=== PATIENT | female | born 1965 | race Two or more races ===

== ENCOUNTER → 2017-10-25 | Outpatient (CLI) | payer OTHER ==
--- NOTE | 2017-10-26 09:12 | RADIOLOGY REPORT (SQ) ---
EXAM DESCRIPTION: U/S THYROID/SFT TISS HD NECK COMPLETED DATE/TIME: 10/25/2017 5:49 pm REASON FOR STUDY: ABNORMAL RESULTS OF THYROID FUNCTION STUDIES R94.6 ABNORMAL RESULTS OF THYROID FU NCTION STUDIES E07.89 OTHER SPECIFIED DISORDERS OF THYROID G44.221 CHRONIC TENSION-TYPE HEADACHE, I NTRACTABLE COMPARISON: None. TECHNIQUE: Dynamic and static negron-scale images acquired of the thyroid gland. Selected additional c olor/power Doppler images recorded. All images stored to PACS. LIMITATIONS: None. FINDINGS: Right lobe thyroid is 4.3 x 1.9 x 0.7 cm in size. There are multiple hypoechoic less than 5 mm nodules in the right lobe thyroid likely small colloid cysts. Left lobe thyroid is 4.1 x 1.8 x 1.0 cm in size. Multiple small less than 5 mm hypoechoic probable c olloid cysts are present. Thyroid isthmus 2 mm in thickness. IMPRESSION: Normal size thyroid gland with multiple small colloid cysts. 1 year follow-up recommend ed. TECHNICAL DOCUMENTATION: JOB ID: [id number] [employer]- All Rights Reserved
--- NOTE | 2017-10-26 09:17 | RADIOLOGY REPORT (SQ) ---
EXAM DESCRIPTION: MRI HEAD WITHOUT; MRA HEAD WITHOUT COMPLETED DATE/TIME: 10/25/2017 6:54 pm REASON FOR STUDY: CHRONIC TENSION-TYPE HEADACHE, INTRACTABLE R94.6 ABNORMAL RESULTS OF THYROID FUNC TION STUDIES E07.89 OTHER SPECIFIED DISORDERS OF THYROID G44.221 CHRONIC TENSION-TYPE HEADACHE, INT RACTABLE COMPARISON: CT brain 07/08/2015 MRI brain 07/21/2015 TECHNIQUE: Multiplanar imaging includes non-contrasted T1, T2, FLAIR, and diffusion with ADC map seq uences. Images stored on PACS. [place] non contrasted MRA was performed with 3D qgkq-tj-vlqhgs acquisition imaging. Data w as reviewed with maximum intensity projected images of the [place] LIMITATIONS: None. FINDINGS: ANATOMY: No developmental anomalies. Normal vascular flow voids. Pituitary fossa normal. CSF SPACES: Normal in size and contour. No hemorrhage. CEREBRUM: Sulci and gyri normal in size and contour. Normal white matter signal on FLAIR imaging. No evidence of hemorrhage, mass, or extraaxial fluid collection. POSTERIOR FOSSA: No signal alteration. No hemorrhage. No edema, masses or mass effect. Internal aury tory canals, cerebello-pontine angles, mastoids normal. DIFFUSION IMAGING: Negative for acute or sub-acute infarction. ORBITS: No masses. Globes normal. PARANASAL SINUSES: No fluid levels. Mucosa normal. [place] MRA: No other significant finding. No [place] stenosis, vascular malformat ion, or aneurysm. IMPRESSION: NORMAL MRI OF THE BRAIN WITHOUT INTRAVENOUS GADOLINIUM CONTRAST. NORMAL [place] MRA EXAM EVIDENCE OF ACUTE STROKE: NO. TECHNICAL DOCUMENTATION: JOB ID: [id number] [employer]- All Rights Reserved
--- NOTE | 2017-10-26 09:17 | RADIOLOGY REPORT (SQ) ---
EXAM DESCRIPTION: MRI HEAD WITHOUT; MRA HEAD WITHOUT COMPLETED DATE/TIME: 10/25/2017 6:54 pm REASON FOR STUDY: CHRONIC TENSION-TYPE HEADACHE, INTRACTABLE R94.6 ABNORMAL RESULTS OF THYROID FUNC TION STUDIES E07.89 OTHER SPECIFIED DISORDERS OF THYROID G44.221 CHRONIC TENSION-TYPE HEADACHE, INT RACTABLE COMPARISON: CT brain 07/08/2015 MRI brain 07/21/2015 TECHNIQUE: Multiplanar imaging includes non-contrasted T1, T2, FLAIR, and diffusion with ADC map seq uences. Images stored on PACS. [place] non contrasted MRA was performed with 3D soxa-yz-emcraw acquisition imaging. Data w as reviewed with maximum intensity projected images of the [place] LIMITATIONS: None. FINDINGS: ANATOMY: No developmental anomalies. Normal vascular flow voids. Pituitary fossa normal. CSF SPACES: Normal in size and contour. No hemorrhage. CEREBRUM: Sulci and gyri normal in size and contour. Normal white matter signal on FLAIR imaging. No evidence of hemorrhage, mass, or extraaxial fluid collection. POSTERIOR FOSSA: No signal alteration. No hemorrhage. No edema, masses or mass effect. Internal aury tory canals, cerebello-pontine angles, mastoids normal. DIFFUSION IMAGING: Negative for acute or sub-acute infarction. ORBITS: No masses. Globes normal. PARANASAL SINUSES: No fluid levels. Mucosa normal. [place] MRA: No other significant finding. No [place] stenosis, vascular malformat ion, or aneurysm. IMPRESSION: NORMAL MRI OF THE BRAIN WITHOUT INTRAVENOUS GADOLINIUM CONTRAST. NORMAL [place] MRA EXAM EVIDENCE OF ACUTE STROKE: NO. TECHNICAL DOCUMENTATION: JOB ID: [id number] [employer]- All Rights Reserved
== END ==
LOC: RAD 16:59
PROVIDERS: ATTEND Physician Assistant
DX: R94.6 Abnormal results of thyroid function studies (principal); E07.89 Other specified disorders of thyroid; G44.221 Chronic tension-type headache, intractable; G52.1 Disorders of glossopharyngeal nerve; E04.1 Nontoxic single thyroid nodule
CPT/HCPCS: 70544; 70551; 76536

== ENCOUNTER → 2018-12-20 | Outpatient (CLI) | payer OTHER ==
--- NOTE | 2018-12-20 09:18 | RADIOLOGY REPORT (SQ) ---
EXAM DESCRIPTION: U/S THYROID/SFT TISS HD NECK COMPLETED DATE/TIME: 12/20/2018 9:08 am REASON FOR STUDY: NONTOXIC SINGLE THYROID NODULE (E04.1), ABN THYROID FUNCTION TEST (R94.6) E04.1 N ONTOXIC SINGLE THYROID NODULE R94.6 ABNORMAL RESULTS OF THYROID FUNCTION STUDIES R13.10 DYSPHAGIA, UNSPECIFIED COMPARISON: Thyroid ultrasound 10/25/2017 TECHNIQUE: Dynamic and static negron-scale images acquired of the thyroid gland. Selected additional c olor/power Doppler images recorded. All images stored to PACS. LIMITATIONS: None. FINDINGS: RIGHT LOBE: Normal size, 4.3 x 1.8 x 1.3 cm Homogeneous echotexture. 4 mm and 2 mm collo id cysts are present, stable. LEFT LOBE: Normal size, 4.2 x 1.6 x 1.4 cm. Homogeneous echotexture. Benign stable 4 mm colloid cys t left lower pole thyroid. ISTHMUS: Normal size. Homogeneous echotexture. No cystic or solid masses. OTHER: No other significant finding. IMPRESSION: Tiny bilateral stable colloid cysts. Otherwise unremarkable study. 1 year follow-up [facility] ultrasound recommended TECHNICAL DOCUMENTATION: JOB ID: [id number] [employer]- All Rights Reserved Reading location - IP/workstation name: [email or web address]
--- NOTE | 2018-12-20 10:03 | RADIOLOGY REPORT (SQ) ---
EXAM DESCRIPTION: BARIUM SWALLOW ESOPHAGUS COMPLETED DATE/TIME: 12/20/2018 9:34 am REASON FOR STUDY: DYSPHAGIA (R13.10) E04.1 NONTOXIC SINGLE THYROID NODULE R94.6 ABNORMAL RESULTS O F THYROID FUNCTION STUDIES R13.10 DYSPHAGIA, UNSPECIFIED FLUOROSCOPY TIME: FLUORO TIME: 1 minutes 55 seconds 16 series of digital fluoroscopic images saved to PACS. FINDINGS: NEUROMUSCULAR COORDINATION OF SWALLOW: Normal. No aspiration. ESOPHAGEAL MOTILITY: Normal peristalsis. No esophageal spasm. ESOPHAGEAL MUCOSA: Normal mucosa without masses or ulceration. GASTRO-ESOPHAGEAL JUNCTION: No hiatal hernia. Unprovoked mild gastroesophageal reflux. NON-GI TRACT STRUCTURES: No significant finding. OTHER: Normal gastric emptying IMPRESSION: Unprovoked mild gastroesophageal reflux. No distal esophageal stricture or hiatal hernia COMMENT: Quality ID 145: Final reports for procedures using fluoroscopy that document radiation exp osure indices, or exposure time and number of fluorographic images (if radiation exposure indices are not available) TECHNICAL DOCUMENTATION: JOB ID: [id number] [employer]- All Rights Reserved COMPARISON: None. Thyroid ultrasound 12/20/2018 Two view chest films 10/03/2016 TECHNIQUE: Under fluoroscopic guidance, patient ingested effervescent granules followed by thick and thin barium. Fluoroscopic spot images and routine radiographic images acquired and stored on PACS. 12 MM BARIUM TABLET GIVEN: Yes No significant delay in passage. LIMITATIONS: None. Reading location - IP/workstation name: [email or web address]
== END ==
LOC: RAD 08:28
PROVIDERS: ATTEND Physician Assistant
DX: E04.1 Nontoxic single thyroid nodule (principal); R94.6 Abnormal results of thyroid function studies; K21.9 Gastro-esophageal reflux disease without esophagitis; R13.10 Dysphagia, unspecified
CPT/HCPCS: 74220; 76536

== ENCOUNTER 2019-03-19 12:43 | Emergency (ER) | payer OTHER ==
[2019-03-19] MEDS ORDERED: KETOROLAC TROMETHAMINE INJ/PF 30 MG/1 ML SDV IV ONE (13:47)
[2019-03-19] MEDS ORDERED: NORMAL SALINE 1000 ML 1,000 ML IV ONE (13:47)
[2019-03-19] MEDS ORDERED: ONDANSETRON HCL INJ/PF 4 MG/2 ML SDV IV ONE (13:47)
--- NOTE | 2019-03-19 13:49 | ER Document Report ---
ED Medical Screen (RME) - General Chief Complaint: Chest Pain Stated Complaint: STOMACHE PAIN Time Seen by Provider: 03/19/19 13:46 Primary Care Provider: LYNNE DIAZ PA [Primary Care Provider] - Follow up as needed Mode of Arrival: Ambulatory Information source: Patient Notes: 53-year-old female presented to ED for left flank pain radiating to the chest and back. She states is been going on for 2 days. States she went to the doctor they suggested in the emergency room for CAT scan and evaluation to see if she had a kidney stone. Patient is alert oriented respirations regular and unlabored speaking in full sentences walks with even steady gait. She has a history of diabetes TIA high cholesterol reflux disease and bilateral tubal ligation. She is present with her at this time. I have ordered CBC chemistry urine and CT abdomen pelvis with no IV or oral contrast to rule out kidney stones. Will treat with Toradol and Zofran. I have greeted and performed a rapid initial assessment of this patient. A comprehensive ED assessment and evaluation of the patient, analysis of test results and completion of medical decision making process will be conducted by an additional ED providers. Dictation of this chart was performed using voice recognition software; therefore, there may be some unintended grammatical errors. TRAVEL OUTSIDE OF THE [place] IN LAST 30 DAYS: No - Related Data Allergies/Adverse Reactions: codeine [Codeine] Allergy (Verified 03/19/19 12:46) Iodinated Contrast- Oral and IV Dye [IV Dye, Iodine Containing] Allergy (Verified 03/19/19 12:46) Past Medical History Pulmonary Medical History: Reports: Hx Asthma - Immunizations Hx Diphtheria, Pertussis, Tetanus Vaccination: No Physical Exam - Vital signs Vitals: Temp Pulse Resp BP Pulse Ox 98.1 F 111 H 18 129/83 H 96 03/19/19 13:18 03/19/19 13:18 03/19/19 13:18 03/19/19 13:18 03/19/19 13:18 Course - Vital Signs Vital signs: Temp Pulse Resp BP Pulse Ox 98.1 F 111 H 18 129/83 H 96 03/19/19 13:18 03/19/19 13:18 03/19/19 13:18 03/19/19 13:18 03/19/19 13:18 Doctor's Discharge - Discharge Referrals: LYNNE DIAZ PA [Primary Care Provider] - Follow up as needed
[2019-03-19 15:25] LABS: ABSOLUTE EOSINOPHILS # (AUTO) 0.1 10^3/uL (0.0-0.6); ABSOLUTE LYMPHOCYTES (AUTO) 1.2 10^3/uL (0.5-4.7); ABSOLUTE MONOCYTES (AUTO) 0.5 10^3/uL (0.1-1.4); ABSOLUTE NEUT (AUTO) 5.6 10^3/uL (1.7-8.2); BASOPHILS % (AUTO) 0.1 % (0-2); EOSINOPHILS % (AUTO) 1.2 % (0-6); HEMATOCRIT 42.8 % (36.0-47.0); HEMOGLOBIN 14.3 g/dL (12.0-15.5); LYMPHOCYTES % (AUTO) 16.7 % (13-45); MEAN CORPUSCULAR HEMOGLOBIN 27.2 pg (27.0-33.4); MEAN CORPUSCULAR HGB CONC 33.3 g/dL (32.0-36.0); MEAN CORPUSCULAR VOLUME 82 fl (80-97); MONOCYTES % (AUTO) 6.9 % (3-13); PLATELET COUNT 306 10^3/uL (150-450); RED BLOOD COUNT 5.24 10^6/uL (3.72-5.28); RED CELL DISTRIBUTION WIDTH 14.2 % (11.5-14.0); SEGMENTED NEUTROPHILS % (AUTO) 75.1 % (42-78); TOTAL CELLS COUNTED % (AUTO) 100 %; WHITE BLOOD COUNT 7.5 10^3/uL (4.0-10.5)
[2019-03-19 15:33] LABS: APPEARANCE,URINE SLIGHTLY-CLOUDY; BILIRUBIN,URINE NEGATIVE (NEGATIVE); COLOR,URINE YELLOW; GLUCOSE, URINE NEGATIVE (NEGATIVE); KETONES,URINE NEGATIVE (NEGATIVE); LEUKOCYTE ESTERASE,URINE NEGATIVE (NEGATIVE); NITRITE,URINE NEGATIVE (NEGATIVE); PROTEIN,URINE NEGATIVE (NEGATIVE); URINE SPECIFIC GRAVITY 1.012
[2019-03-19 15:50] LABS: ALANINE AMINOTRANSFERASE 318 U/L (9-52); ALBUMIN 4.5 g/dL (3.5-5.0); ALKALINE PHOSPHATASE 114 U/L (38-126); ANION GAP 10 (5-19); ASPARTATE AMINO TRANSFERASE 251 U/L (14-36); BILIRUBIN,DIRECT 0.4 mg/dL (0.0-0.4); BILIRUBIN,TOTAL 0.7 mg/dL (0.2-1.3); BLOOD UREA NITROGEN 12 mg/dL (7-20); CALCIUM 9.9 mg/dL (8.4-10.2); CARBON DIOXIDE 28 mmol/L (22-30); CHLORIDE 106 mmol/L (98-107); CREATINE KINASE 46 U/L (30-135); GLUCOSE 110 mg/dL (75-110); POTASSIUM 4.5 mmol/L (3.6-5.0); SODIUM 143.7 mmol/L (137-145); TOTAL PROTEIN 8.1 g/dL (6.3-8.2)
--- NOTE | 2019-03-19 15:56 | RADIOLOGY REPORT (SQ) ---
EXAM DESCRIPTION: CT ABD/PELVIS NO ORAL OR IV COMPLETED DATE/TIME: 03/19/2019 3:43 pm REASON FOR STUDY: left flank pain COMPARISON: None. TECHNIQUE: CT scan of the abdomen and pelvis performed without intravenous or oral contrast. Images reviewed with lung, soft tissue, and bone windows. Reconstructed coronal and sagittal MPR images revi ewed. All images stored on PACS. All CT scanners at this facility use dose modulation, iterative reconstruction, and/or weight based d osing when appropriate to reduce radiation dose to as low as reasonably achievable (ALARA). [facility]: Dose Right [facility]: CareDose [facility]: Dose Right [facility]: Teradose 4D [facility]: Smart Mete[employer] Protect RADIATION DOSE: CT Rad equipment meets quality standard of care and radiation dose reduction techniq ues were employed. CTDIvol: 9.8 mGy. DLP: 530 mGy-cm.mGy. LIMITATIONS: None. FINDINGS: LOWER CHEST: No significant findings. No nodules or infiltrates. NON-CONTRASTED LIVER, SPLEEN, ADRENALS: Evaluation limited by lack of IV contrast. No identified sign ificant masses. PANCREAS: No masses. No peripancreatic inflammatory changes. GALLBLADDER: No identified stones by CT criteria. No inflammatory changes to suggest cholecystitis. RIGHT KIDNEY AND URETER: No suspicious masses. Assessment limited by lack of IV contrast. No signif icant calcifications. No hydronephrosis or hydroureter. LEFT KIDNEY AND URETER: No suspicious masses. Assessment limited by lack of IV contrast. There is a punctuate calcification in the vicinity of the distal left ureter (series 3, image 77), which is not definitely a ureteral calculus or phlebolith. There are additional phleboliths in the low pelvis. No hydronephrosis or hydroureter. AORTA AND RETROPERITONEUM: No aneurysm. No retroperitoneal masses or adenopathy. BOWEL AND PERITONEAL CAVITY: No obvious masses or inflammatory changes. No free fluid. APPENDIX: Normal. PELVIS, BLADDER, AND ABDOMINAL WALL:No abnormal masses. No free fluid. Bladder normal. BONES: No significant findings. OTHER: No other significant finding. IMPRESSION: No definite noncontrast CT findings to explain left-sided flank pain. There is a punctua te calcification in the vicinity of the distal left ureter (series 3, image 77), which is not definit balbir a ureteral calculus or phlebolith. No hydronephrosis or hydroureter. No other evidence of urina ry tract calculus. There are additional phleboliths in the low pelvis. COMMENT: Quality ID # [id number]: Final reports with documentation of one or more dose reduction techniques (e.g., Automated exposure control, adjustment of the mA and/or kV according to patient size, use of iterative reconstruction technique) TECHNICAL DOCUMENTATION: JOB ID: [id number] [employer]- All Rights Reserved Reading location - IP/workstation name: [email or web address]
--- NOTE | 2019-03-19 16:15 | EKG REPORT ---
SEVERITY:- BORDERLINE ECG - SINUS TACHYCARDIA BORDERLINE T ABNORMALITIES, INFERIOR LEADS : Confirmed by: Mundo Dewitt MD 19-Mar-2019 16:14:31
[2019-03-19 16:19] LABS: CREATINE KINASE MB < 0.22 ng/mL (<4.55); TROPONIN I < 0.012 ng/mL
[2019-03-19] MEDS ORDERED: KETOROLAC TROMETHAMINE INJ/PF 30 MG/1 ML SDV ONE (17:05)
[2019-03-19] MEDS ORDERED: ONDANSETRON HCL INJ/PF 4 MG/2 ML SDV ONE (17:05)
--- NOTE | 2019-03-19 18:26 | ER Document Report ---
ED General - General Chief Complaint: Chest Pain Stated Complaint: STOMACHE PAIN Time Seen by Provider: 03/19/19 13:46 Primary Care Provider: LYNNE DIAZ PA [Primary Care Provider] - Follow up as needed Mode of Arrival: Ambulatory Information source: Patient Notes: 53-year-old female with diabetes, hyperlipidemia presents with nausea, vomiting, left upper quadrant abdominal pain that started 2 days prior to arrival. Patient describes the pain as stabbing, intermittent with radiation to her right upper quadrant and epigastric area. Patient states that she has been unable to tolerate food or fluids. She has had associated diarrhea. She denies fever, chills, dysuria, hematuria. Patient was recently started on a new medication for diabetes called Trulicity. After reviewing literature for this medication, reactions are nausea, vomiting, diarrhea and abdominal pain. TRAVEL OUTSIDE OF THE [place] IN LAST 30 DAYS: No - HPI Onset: Other Onset/Duration: Gradual, Intermittent Quality of pain: Sharp, Stabbing Severity: Moderate Pain Level: 2 Associated symptoms: Diarrhea, Nausea, Vomiting, Other Exacerbated by: Food Relieved by: Denies Similar symptoms previously: No Recently seen / treated by doctor: No - Related Data Allergies/Adverse Reactions: codeine [Codeine] Allergy (Verified 03/19/19 12:46) Iodinated Contrast- Oral and IV Dye [IV Dye, Iodine Containing] Allergy (Verified 03/19/19 12:46) Past Medical History - General Information source: Patient - Social History Smoking Status: Never Smoker Frequency of alcohol use: Occasional Drug Abuse: None Lives with: Family Family History: Reviewed & Not Pertinent Patient has suicidal ideation: No Patient has homicidal ideation: No Pulmonary Medical History: Reports: Hx Asthma Endocrine Medical History: Reports: Hx Diabetes Mellitus Type 2 - Immunizations Hx Diphtheria, Pertussis, Tetanus Vaccination: No Review of Systems - Review of Systems Notes: REVIEW OF SYSTEMS: CONSTITUTIONAL : Denies fever, chills, or sweats. Denies recent illness. D enies weight loss, recent hospitalizations. EENT: Denies visual changes, eye pain. Denies sore throat, oral lesions, difficulty swallowing. CARDIOVASCULAR: Denies chest pain. Denies palpitations. Denies lower extremity edema. RESPIRATORY: Denies cough. Denies shortness of breath, wheezing. GASTROINTESTINAL: + abdominal pain or distention. + nausea, vomiting, or diarrhea. Denies blood in vomitus, stools, or per rectum. Denies black, tarry stools. Denies constipation. GENITOURINARY: Denies difficulty urinating, painful urination, frequency, blood in urine, or vaginal discharge. MUSCULOSKELETAL: Denies back or neck pain or stiffness. Denies joint pain or swelling. SKIN: Denies rash, lesions or sores. HEMATOLOGIC : Denies easy bruising or bleeding. LYMPHATIC: Denies swollen glands. NEUROLOGICAL: Denies confusion or altered mental status. Denies loss of consciousness. Denies dizziness or lightheadedness. Denies headache. Denies weakness or paralysis. Denies problems difficulty with ambulation, slurred speech. Denies sensory loss, numbness, or tingling. Denies seizures. PSYCHIATRIC: Denies anxiety or stress. Denies depression, suicidal ideation, or homicidal ideation. Denies visual or auditory hallucinations. Physical Exam - Vital signs Vitals: Temp Pulse Resp BP Pulse Ox 98.1 F 111 H 18 129/83 H 96 03/19/19 13:18 03/19/19 13:18 03/19/19 13:18 03/19/19 13:18 03/19/19 13:18 - Notes Notes: PHYSICAL EXAMINATION: GENERAL: Well-appearing, well-nourished and in no acute distress. HEAD: Atraumatic, normocephalic. EYES: Pupils equal round and reactive to light, extraocular movements intact, conjunctiva are normal. ENT: Nares patent, oropharynx clear without exudates. Moist mucous membranes. NECK: Normal range of motion, supple without lymphadenopathy LUNGS: Breath sounds clear to auscultation bilaterally and equal. No wheezes rales or rhonchi. HEART: Regular rate and rhythm without murmurs ABDOMEN: Soft, mild generalized tenderness nondistended abdomen. No guarding, no rebound. No masses appreciated. Female : deferred Musculoskeletal: Normal range of motion, no pitting or edema. No cyanosis. NEUROLOGICAL: Cranial nerves grossly intact. Normal speech, normal gait. Normal sensory, motor exams PSYCH: Normal mood, normal affect. SKIN: Warm, Dry, normal turgor, no rashes or lesions noted. Course - Re-evaluation Re-evalutation: 03/20/19 01:48 Laboratory 03/19/19 03/19/19 03/19/19 15:05 15:05 15:05 WBC 7.5 RBC 5.24 Hgb 14.3 Hct 42.8 MCV 82 MCH 27.2 MCHC 33.3 RDW 14.2 H Plt Count 306 Seg Neutrophils % 75.1 Lymphocytes % 16.7 Monocytes % 6.9 Eosinophils % 1.2 Basophils % 0.1 Absolute Neutrophils 5.6 Absolute Lymphocytes 1.2 Absolute Monocytes 0.5 Absolute Eosinophils 0.1 Absolute Basophils 0.0 Sodium 143.7 Potassium 4.5 Chloride 106 Carbon Dioxide 28 Anion Gap 10 BUN 12 Creatinine 0.87 Est GFR ( Amer) > 60 Est GFR (Non-Af Amer) > 60 Glucose 110 Calcium 9.9 Total Bilirubin 0.7 Direct Bilirubin 0.4 Neonat Total Bilirubin Not Reportable Neonat Direct Bilirubin Not Reportable Neonat Indirect Bili Not Reportable AST 251 H ALT 318 H Alkaline Phosphatase 114 Creatine Kinase 46 CK-MB (CK-2) < 0.22 Troponin I < 0.012 Total Protein 8.1 Albumin 4.5 Urine Color Urine Appearance Urine pH Ur Specific [place] Urine Protein Urine Glucose (UA) Urine Ketones Urine Blood Urine Nitrite Urine Bilirubin Urine Urobilinogen Ur Leukocyte Esterase Urine WBC (Auto) Urine RBC (Auto) Urine Bacteria (Auto) Squamous Epi Cells Auto Urine Mucus (Auto) Urine Ascorbic Acid 03/19/19 15:05 WBC RBC Hgb Hct MCV MCH MCHC RDW Plt Count Seg Neutrophils % Lymphocytes % Monocytes % Eosinophils % Basophils % Absolute Neutrophils Absolute Lymphocytes Absolute Monocytes Absolute Eosinophils Absolute Basophils Sodium Potassium Chloride Carbon Dioxide Anion Gap BUN Creatinine Est GFR ( Amer) Est GFR (Non-Af Amer) Glucose Calcium Total Bilirubin Direct Bilirubin Neonat Total Bilirubin Neonat Direct Bilirubin Neonat Indirect Bili AST ALT Alkaline Phosphatase Creatine Kinase CK-MB (CK-2) Troponin I Total Protein Albumin Urine Color YELLOW Urine Appearance SLIGHTLY-CLOUDY Urine pH 5.0 Ur Specific [place] 1.012 Urine Protein NEGATIVE Urine Glucose (UA) NEGATIVE Urine Ketones NEGATIVE Urine Blood NEGATIVE Urine Nitrite NEGATIVE Urine Bilirubin NEGATIVE Urine Urobilinogen 2.0 H Ur Leukocyte Esterase NEGATIVE Urine WBC (Auto) 4 Urine RBC (Auto) 0 Urine Bacteria (Auto) TRACE Squamous Epi Cells Auto 1 Urine Mucus (Auto) RARE Urine Ascorbic Acid NEGATIVE Abdomen/Pelvis CT 03/19/19 13:46 IMPRESSION: No definite noncontrast CT findings to explain left-sided flank pain. There is a punctuate calcification in the vicinity of the distal left ureter (series 3, image 77), which is not definitely a ureteral calculus or phlebolith. No hydronephrosis or hydroureter. No other evidence of urinary tract calculus. There are additional phleboliths in the low pelvis. Abdomen Ultrasound 03/19/19 18:22 IMPRESSION: Poor visualization of the gallbladder as detailed above without specific sonographic findings noted to suggest etiology of the patient's symptoms. Further evaluation with nuclear medicine scintigraphy HIDA scan may be considered. copyright 2010 [employer]- All Rights Reserved Temp Pulse Resp BP Pulse Ox 98.4 F 82 16 104/62 97 03/19/19 20:52 03/19/19 20:52 03/19/19 20:52 03/19/19 20:52 03/19/19 20:52 53-year-old female presents with left upper quadrant abdominal pain, nausea, vomiting and diarrhea. Vital signs reviewed and within normal limits. Patient does not appear toxic or dehydrated. She is in no acute distress. Patient did receive IV fluids and Zofran prior to my exam and reports improvement of her pain and nausea. CBC shows no leukocytosis or anemia. CMP is remarkable for mildly elevated liver enzymes. Urinalysis not consistent with urinary tract i nfection. CT of the abdomen pelvis was obtained by provider in triage and showed no evidence of an acute process. Right upper quadrant ultrasound was obtained and showed no evidence of cholecystitis. Patient has been able to tolerate fluids during her ED course. I did discuss elevated liver enzymes with the patient and recommend that she follow-up with her primary care physician for repeat lab testing. Patient was started on a new diabetic medication which can cause nausea, vomiting, diarrhea. She does state that she has had elevation in her liver enzymes previously but denies history of hepatitis, alcoholism, increased Tylenol use or IV drug abuse. Patient was discharged home with prescription for Bentyl, Zofran. Patient was evaluated and treated as appropriate for the patient's presenting symptoms and complaint, with consideration of any critical or life threatening conditions that may be associated with their obtained history and exam as noted above. All results were discussed with patient and family members who are at the bedside. Patient provided the opportunity to ask questions, and express concerns. Patient was educated on treatments based on their presumed diagnosis as noted above. At this time we will discharge the patient with return precautions and follow-up recommendations. Verbal discharge instructions given a the bedside. Medication warnings reviewed. Patient is in agreement with this plan and has verbalized understanding of return precautions. After careful consideration I feel that that patient can be safely discharged from the emergency department, they were advised to followup with a primary care physician in 2-3 days. Dictation on this chart was performed using voice recognition software and may result in unintended grammatical, spelling, syntax or errors. - Vital Signs Vital signs: Temp Pulse Resp BP Pulse Ox 98.4 F 82 16 104/62 97 03/19/19 20:52 03/19/19 20:52 03/19/19 20:52 03/19/19 20:52 03/19/19 20:52 - Laboratory Result Diagrams: 03/19/19 15:05 03/19/19 15:05 Laboratory results interpreted by me: 03/19/19 03/19/19 03/19/19 15:05 15:05 15:05 RDW 14.2 H AST 251 H ALT 318 H Urine Urobilinogen 2.0 H - Diagnostic Test Radiology reviewed: Image reviewed, Reports reviewed - EKG Interpretation by Oh EKG shows normal: Sinus rhythm Rate: Tachycardia Rhythm: NSR - T wave inversion in lead III When compared to previous EKG there are: Previous EKG unavailable Discharge - Discharge Clinical Impression: Nausea vomiting and diarrhea, Elevated liver enzymes Abdominal pain Qualifiers: Abdominal location: generalized Qualified Code(s): R10.84 - Generalized abdo bruce pain Condition: Good Disposition: HOME, SELF-CARE Instructions: Abdominal Pain ([facility]), Antinausea Medication ([facility]), Diarrhea, Nonspecific ([facility]), Intravenous (IV) Fluids ([facility]), Liver Function Abnormality ([facility]), Viral Syndrome ([facility]), Vomiting ([facility]) Additional Instructions: Please follow-up with your primary care physician for repeat blood work and evaluation of your liver enzymes. Follow up with your [id number] hours for further care or return to the ED IMMEDIATELY if symptoms worsen or you have any concerns. If you cannot afford to follow up with your primary care physician a list of low cost clinics have been provided at the end of your discharge papers as well. Most prescribed medications have multiple side effects. The safest thing to do is when filling your prescription speak to your pharmacist regarding possible interactions with your normal home medications and over the counter medications such as Ibuprofen, Tylenol, Benadryl. If you experience any symptoms that cause you discomfort or concern you should discontinue the medication immediately and return to the emergency room or call your primary care physician. Prescriptions: Dicyclomine HCl [Bentyl 20 mg Tablet] 20 mg PO QID #12 tablet Ondansetron [Zofran Odt 4 mg Tablet] 1 - 2 tab PO Q4H PRN #15 tab.rapdis PRN Reason: For Nausea/Vomiting Referrals: LYNNE DIAZ PA [Primary Care Provider] - Follow up as needed
[2019-03-19] MEDS ORDERED: RINGERS SOLUTION,LACTATED 1,000 ML IV ONE (20:24)
--- NOTE | 2019-03-19 20:41 | RADIOLOGY REPORT (SQ) ---
EXAM DESCRIPTION: US ABDOMEN LIMITED COMPLETED DATE/TME: 03/19/2019 18:22 CLINICAL HISTORY: 53 years, Female, elevated lfts pain COMPARISON: None. TECHNIQUE: Sarmiento scale sonography of the right upper quadrant abdomen. LIMITATIONS: Bowel gas and small gallbladder. FINDINGS: LIVER: Within normal limits morphology and echogenicity measuring 16.7 cm. GALLBLADDER: The gallbladder is poorly visualized secondary to overlying bowel gas and small size, visualized portions of which reveal normal gallbladder wall thickness, no pericholecystic fluid. Negative sonographic Hughes's sign. No definitive calculi are identified. Shadowing echogenicity appears to be dirty shadowing with RIGHT intraluminal echoes at the level of the gallbladder fossa, a finding suggestive of adjacent bowel. No clear calculi are identified. BILIARY TRACT: No significant abnormalities noted. The common bile duct measures four mm. PANCREAS: Limited evaluation secondary to partial obscuration by overlying bowel gas otherwise within normal limits. KIDNEY: The RIGHT kidney is within normal limits of morphology and echogenicity measuring 10.4 cm. IMPRESSION: Poor visualization of the gallbladder as detailed above without specific sonographic findings noted to suggest etiology of the patient's symptoms. Further evaluation with nuclear medicine scintigraphy HIDA scan may be considered. copyright 2010 [employer]- All Rights Reserved
[2019-03-19 20:57] VITALS: BP 104/62
== END 2019-03-19 21:06 | disposition home or self-care (01) ==
LOC: ER 12:43
DX: R07.9 Chest pain, unspecified (principal); R19.7 Diarrhea, unspecified; R74.8 Abnormal levels of other serum enzymes; R11.2 Nausea with vomiting, unspecified; R10.12 Left upper quadrant pain; E11.9 Type 2 diabetes mellitus without complications; Z88.6 Allergy status to analgesic agent
CPT/HCPCS: 93005; 99284; 96361; 96374; 96375; 36415; 82553; 82550; 85025; 80053; 81001; 84484; 76705; 74176; 93010; J1885; J2405; J7030; J7120

== ENCOUNTER → 2019-04-02 | Outpatient (CLI) | payer OTHER ==
--- NOTE | 2019-04-02 15:32 | RADIOLOGY REPORT (SQ) ---
EXAM DESCRIPTION: NM HIDA SCAN WITH CCK COMPLETED DATE/TIME: 04/02/2019 3:23 pm REASON FOR STUDY: R10.13 EPIGASTRIC PAIN R10.13 EPIGASTRIC PAIN R94.5 ABNORMAL RESULTS OF LIVER FU NCTION STUDIES COMPARISON: Right upper quadrant ultrasound 03/19/2019 CT abdomen and pelvis 03/19/2019 RADIONUCLIDE AND DOSE: DOSAGE RADIONUCLIDE: 5.3 millicuries Tc99m Mebrofenin. DOSAGE CCK: 1.6 micrograms. DOSAGE MORPHINE: Not required. The route of agent administration: Intravenous TECHNIQUE: Serial imaging right upper quadrant up to 60 minutes following injection of radionuclide. CCK injected after gallbladder visualized. LIMITATIONS: None. FINDINGS: LIVER: Normal visualization INTRAHEPATIC BILE DUCTS: Normal visualization COMMON BILE DUCT: Normal visualization GALLBLADDER: Normal visualization. Calculated ejection fraction of 41%. Normal range is greater th an 35%. PHYSICAL RESPONSE: Patients presenting complaint was not reproduced. OTHER: No other significant finding. IMPRESSION: NORMAL STUDY WITHOUT CYSTIC OR COMMON DUCT OBSTRUCTION. NORMAL GALLBLADDER EJECTION FRA CTION. NO EVIDENCE FOR BILIARY DYSKINESIS. TECHNICAL DOCUMENTATION: JOB ID: [id number] [employer] All Rights Reserved Reading location - IP/workstation name: [email or web address]
== END ==
LOC: RAD 13:00
PROVIDERS: ATTEND Physician Assistant
DX: R10.13 Epigastric pain (principal); R94.5 Abnormal results of liver function studies
CPT/HCPCS: 78227; J2805; A9537; Q9969

== ENCOUNTER → 2019-07-26 | Outpatient (CLI) | payer OTHER ==
--- NOTE | 2019-07-27 13:18 | RADIOLOGY REPORT (SQ) ---
EXAM DESCRIPTION: MRI ABDOMEN WITHOUT COMPLETED DATE/TIME: 07/26/2019 7:18 pm REASON FOR STUDY: R10.9 UNSPECIFIED ABDOMINAL PAIN R10.9 UNSPECIFIED ABDOMINAL PAIN COMPARISON: Recent imaging to include CT, ultrasound and nuclear medicine HIDA scan. TECHNIQUE: Noncontrast MRI of the liver with multiplanar T1, T2, in and out of phase T1. MRCP. Anastacia rce and MIP images reviewed. LIMITATIONS: None. FINDINGS: GALLBLADDER: Normal. INTRAHEPATIC DUCTS: Nondilated. EXTRAHEPATIC DUCTS: Common duct is normal caliber. No dilatation of the pancreatic duct. No ductal filling defects noted. PANCREAS: Generally homogeneous, no gross mass or significant signal alteration. No surrounding infl ammatory changes or fluid. Pancreatic duct is normal. LIVER, SPLEEN, KIDNEYS, ADRENALS: No significant abnormality. VESSELS: No evidence of aneurysm. Grossly appropriate flow voids in the major vascular structures. LUNG BASES: Grossly clear. OTHER: No other significant finding. IMPRESSION: NORMAL HEPATOBILIARY SYSTEM. NO STONES OR COMMON DUCT ABNORMALITIES. NO LIVER PATHOLOGY . OTHER SOLID ORGANS LOOK NORMAL. TECHNICAL DOCUMENTATION: JOB ID: [id number] [employer]- All Rights Reserved Reading location - IP/workstation name: [email or web address]
== END ==
LOC: RAD 16:30
PROVIDERS: ATTEND Physician Assistant
DX: R10.9 Unspecified abdominal pain (principal)
CPT/HCPCS: 74181